=== PATIENT | male | born 1975 | race Two or more races ===

== ENCOUNTER 2021-05-22 12:00 | Emergency (ER) | payer MEDICAID, OTHER, SELFPAY ==
--- NOTE | ~2021-05-22 | XR_ITS ---
EXAMINATION: XR FOOT, RIGHT CLINICAL INFORMATION: Laceration great toe COMPARISON: None TECHNIQUE: AP, lateral, and oblique views of the right foot. FINDINGS: Bone alignment is normal. No fracture or dislocation is seen. Joint spaces are normal. Soft tissues are normal. XR/XR foot RT min 3V IMPRESSION: No fracture or foreign body seen.
[2021-05-22 13:28] VITALS: BP 138/90; PULSE 86; RESP 19; TEMP 36.6; O2SAT 98; BMI 35.6
[2021-05-22] MEDS: Diphth,Pertus(ACell),Tet Adult 0.5 ML SYRINGE IM (14:31)
[2021-05-22] MEDS: Ibuprofen 800 MG TABLET PO (14:31)
[2021-05-22] MEDS: Lidocaine HCl 2 % MPF 5 ML VIAL SUBCUT (14:31)
--- NOTE | 2021-05-22 14:40 | ED.WOUNDLAC ---
HPI - Wound/Laceration General Chief Complaint: Wound/Laceration Stated Complaint: wound/lac R foot Time Seen by Provider: 05/22/21 12:45 Source: patient and family Mode of arrival: ambulatory Limitations: language barrier (Cuban-speaking) History of Present Illness HPI narrative: 46-year-old male presenting to the ED with his they are both Cuban speaking after he was working at home trying to cut dry wall to fix some holes in his wall from door dog a [employer] who continues to make holes although when he was cutting the drywall he lacerated his right great toe with the saw machine that he was using and it cut through his boot. He reports he is not up-to-date on tetanus. He reports pain otherwise denies any paresthesias or any other symptoms complaints concerns or injuries at this time. 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) Extremity Location: right: foot (great toe ) Place: home Patient tetanus UTD: No Context: accidental Associated symptoms: pain Treatments prior to arrival: tourniquet Related Data Previous Rx's Medication Instructions Recorded ibuprofen 800 mg tablet 800 mg PO Q8H PRN #14 tab 05/22/21 levofloxacin 750 mg tablet 750 mg PO DAILY 10 Days #10 tab 05/22/21 Allergies Allergy/AdvReac Type Severity Reaction Status Date / Time No Known Allergies Allergy Verified 05/22/21 14:13 Review of Systems Review of Systems: Constitutional : No Fever, No Chills, Cardiovascular : No Chest Pain, No SOB Respiratory : No Dyspnea Gastrointestinal : No abdominal pain Musculoskeletal : No Joint Swelling Skin : positive skin laceration, No Foreign bodies, No rash, No surrounding erythema Neuro : No Weakness, No Numbness/tingling Psych : No SI/HI/thoughts of self injury Yes all other systems are reviewed and are negative [facility] Past Medical History Attestation statement: The following information was validated with the patient. Social History Social History Advance Directives: No Physical Exam Vital Signs: Vital Signs: Last Vital Signs Temp 98 F 05/22/21 13:28 Pulse 86 05/22/21 13:28 Resp 19 05/22/21 13:28 BP 138/90 H 05/22/21 13:28 Pulse Ox 98 05/22/21 13:28 BMI result Body Mass Index 35.6 vital signs have been reviewed as normal and appeared to be correct. Blood pressure normal Heart rate normal. Respiration rate normal. Temperature normal. Oxygen saturation normal. Appearance: Alert. Oriented X3. No acute distress. Head: Normal external exam. Normocephalic. Atraumatic. Eyes: PERRLA. EOMI. Conjunctiva and sclera normal. Eyelids normal. ENT: Pharynx normal. Uvula midline. Moist mucous membranes. Neck: Normal inspection. Neck supple. FROM. CVS: Normal heart rate and rhythm. Respiratory: No respiratory distress. Painless inspiration. Skin: Skin warm and dry. Normal skin color. Normal skin turgor. No rashes/lesions/lacerations noted. Extremities: Patient with the 2 cm intermediate laceration to the right great toe at the proximal abscess back no obvious ligamentous or tendon injury noted. He has full range of motion of all toes and foot and ankle joint. No foreign bodies noted. Otherwise all other Extremities exhibit normal range of motion and nontender. Neuro: Oriented X 3. No motor deficit. No sensory deficit. Reflexes normal. Normal steady gait. No focal neuro deficits noted. Vascular: + radial pulses/+ 2 distal pedal pulses/+2 dorsalis pedis b/l. Normal cap refill. No cyanosis noted to upper extremity nails and lower extremity toes nails. Course Course Course Narrative: Patient now status post laceration repair with 5 simple running stitch. Tetanus updated. Imaging obtained and negative for any acute processes. Will DC home with symptomatic treatment antibiotics along with instructions to return in 10-14 days for suture removal and to follow up prior if signs of infection. Patient understands agrees the plan. [facility] - Wound/Laceration Medical Records Attestation: I reviewed the patient's medical records. Imaging Data Right foot x-ray: Attestation: I personally reviewed and interpreted this imaging study as follows: Radiologist's impression: FINDINGS: Bone alignment is normal. No fracture or dislocation is seen. Joint spaces are normal. Soft tissues are normal.? XR/XR foot RT min 3V IMPRESSION: No fracture or foreign body seen. Procedures Laceration Laceration 1: Site: lower extremity (foot great toe at proximal aspect) Side (If applicable): right Size (cm): 2 Description: linear Depth: simple, single layer Local Anesthetic: lidocaine 2% Amount of anesthesia used (mL): 5 Pre-repair: wound explored, irrigated extensively and deep structures intact Skin layer closed with: nylon Size (cm): 4-0 Number of sutures: 5 Technique: simple, interrupted Discharge Plan Discharge Clinical Impression: Laceration Patient Disposition: Home, Self-Care Instructions: Laceration (DC) Prescriptions: New levofloxacin 750 mg tablet 750 mg PO DAILY 10 Days Qty: 10 0RF ibuprofen 800 mg tablet 800 mg PO Q8H PRN (Reason: pain) Qty: 14 0RF Referrals: [facility] [Primary Care Provider] - 2 days Philomena Mac PA [Emergency Midlevel Provider] - 10 days (for suture removal) Stand Alone Forms: Work/School Release Print Language: Cuban
== END 2021-05-22 16:01 | disposition home or self-care (01) ==
PROVIDERS: Emergency Provider Emergency Medicine
DX: S91.111A Laceration without foreign body of right great toe without damage to nail, initial encounter (principal); S90.811A Abrasion, right foot, initial encounter; M79.671 Pain in right foot; W26.0XXA Contact with knife, initial encounter; Y93.9 Activity, unspecified; Y92.009 Unspecified place in unspecified non-institutional (private) residence as the place of occurrence of the external cause; Y99.8 Other external cause status
CPT/HCPCS: 12001; 73630; 90471; 90715; 99284

== ENCOUNTER 2021-06-01 08:53 | Emergency (ER) | payer MEDICAID, OTHER, SELFPAY ==
[2021-06-01 09:10] VITALS: BP 139/84; PULSE 79; RESP 18; TEMP 36.7; O2SAT 96; BMI 35.0
--- NOTE | 2021-06-01 09:32 | ED_ITS ---
HPI - Recheck/Abnormal Lab/Rx General Chief Complaint: Skin/Abscess/Foreign Body Stated Complaint: stiches removal Time Seen by Provider: 06/01/21 09:26 Source: patient and family Mode of arrival: ambulatory Limitations: language barrier History of Present Illness complaint: suture/staple removal Initial visit (ago): day(s) (10) Initial visit for: laceration Returns today for: staple/stitch removal Symptoms since prior visit: no new symptoms Context: planned re-check Associated symptoms: none Treatments prior to arrival: other (Taking the ibuprofen and Levaquin as prescribed) Related Data Previous Rx's Medication Instructions Recorded ibuprofen 800 mg tablet 800 mg PO Q8H PRN #14 tab 05/22/21 levofloxacin 750 mg tablet 750 mg PO DAILY 10 Days #10 tab 05/22/21 Allergies Allergy/AdvReac Type Severity Reaction Status Date / Time No Known Allergies Allergy Verified 05/22/21 14:13 Review of Systems Review of Systems: Constitutional : No Fever, No Chills, Cardiovascular : No Chest Pain, No SOB Respiratory : No Dyspnea Gastrointestinal : No abdominal pain Musculoskeletal : No Joint Swelling Skin : positive healing skin laceration, No Foreign bodies, No rash, No surrounding erythema, no purulent drainage Neuro : No Weakness, No Numbness/tingling Psych : No SI/HI/thoughts of self injury Yes all other systems are reviewed and are negative [facility] Past Medical History Attestation statement: The following information was validated with the patient. Medical History No known health problems Social History Social History Advance Directives: No Advance Directives Information Provided: Yes Physical Exam Vital Signs: Vital Signs: Last Vital Signs Temp 98.0 F 06/01/21 09:10 Pulse 79 06/01/21 09:10 Resp 18 06/01/21 09:10 BP 139/84 06/01/21 09:10 Pulse Ox 96 06/01/21 09:10 BMI result Body Mass Index 35.0 vital signs have been reviewed as normal and appeared to be correct. Blood pressure normal Heart rate normal. Respiration rate normal. Temperature normal. Oxygen saturation normal. Appearance: Alert. Oriented X3. No acute distress. Head: Normal external exam. Normocephalic. Atraumatic. Eyes: PERRLA. EOMI. Conjunctiva and sclera normal. Eyelids normal. ENT: Pharynx normal. Uvula midline. Moist mucous membranes. Neck: Normal inspection. Neck supple. FROM. CVS: Normal heart rate and rhythm. Respiratory: No respiratory distress. Painless inspiration. Skin: Skin warm and dry. Normal skin color. Normal skin turgor. No rashes /lesions/lacerations noted. Extremities: To right great toe proximal aspect patient has well-healing wound with [address] No surrounding erythema/streaking/induration/fluctuance or signs of infection noted. Patient has full range of motion of the joint. No obvious ligamentous or tendon injury noted. No calf tenderness is noted. No lower extremity edema. Otherwise all other Extremities exhibit normal range of motion and nontender. Neuro: Oriented X 3. No motor deficit. No sensory deficit. Reflexes normal. Normal steady gait. No focal neuro deficits noted. Vascular: + radial pulses/+ 2 distal pedal pulses/+2 dorsalis pedis b/l. Normal cap refill. No cyanosis noted to upper extremity nails and lower extremity toes nails. Course Course Course Narrative: Patient now status post suture removal. Five sutures removed. Patient tolerated procedure well. No signs of infection. Instructed patient to continue taking his antibiotics as previously prescribed and to return if any new or worsening symptoms. Patient understands agrees with this plan. [facility] - Recheck/Abnormal Lab/Rx Medical Records Attestation: I reviewed the patient's medical records. Discharge Plan Discharge Clinical Impression: Visit for suture removal Patient Disposition: Home, Self-Care Instructions: Stitches Removal (ED) Prescriptions: No Action levofloxacin 750 mg tablet 750 mg PO DAILY 10 Days Qty: 10 0RF ibuprofen 800 mg tablet 800 mg PO Q8H PRN (Reason: pain) Qty: 14 0RF Referrals: Physician,Unknown J [Primary Care Provider] - (your pcp) Print Language: Kyrgyz
== END 2021-06-01 09:44 | disposition home or self-care (01) ==
PROVIDERS: Emergency Provider Emergency Medicine
DX: Z48.02 Encounter for removal of sutures (principal); Z79.899 Other long term (current) drug therapy
CPT/HCPCS: 99283

== ENCOUNTER 2022-10-29 15:00 | Outpatient (REF) | payer MEDICAID, OTHER, SELFPAY ==
[2022-10-29 16:30] LABS: Estimated Average Glucose 151 mg/dL; Hemoglobin A1c % 6.9 % (<6.0)
== END 2022-10-29 15:01 | disposition home or self-care (01) ==
LOC: HO.HHCL 15:00
PROVIDERS: Visit Provider Registered Nurse
DX: E11.65 Type 2 diabetes mellitus with hyperglycemia (principal)
CPT/HCPCS: 36415; 83036

== ENCOUNTER 2024-06-08 15:21 | Outpatient (REF) | payer MEDICAID, OTHER, SELFPAY ==
[2024-06-08 16:30] LABS: Hematocrit 40.2 % (42.0-52.0); Hemoglobin 13.4 g/dl (14.0-18.0); Mean Corpuscular HGB Conc 33.3 g/dl (31.0-36.0); Mean Corpuscular Hemoglobin 28.9 pg (27.0-33.0); Mean Corpuscular Volume 86.8 fL (80.0-98.0); Mean Platelet Volume 9.9 fL (9.4-12.4); Platelet Count 323 X10*3/uL (160-400); Red Blood Count 4.63 X10*6/uL (4.60-5.80); Red Cell Distribution Width 13.4 % (11.0-16.0); White Blood Count 7.7 X10*3/uL (4.8-10.8)
[2024-06-08 16:33] LABS: Estimated Average Glucose 203 mg/dL; Hemoglobin A1C 253.9878 umol/L; Hemoglobin A1c % 8.7 % (<6.0); Total Hemoglobin (HGBA1C) 3556.4472 umol/L
[2024-06-08 17:10] LABS: Creatinine Urine 184.29 mg/dL; Microalbum/Creatinine Ratio Ur 13.5 ug/mg cr (<30)
[2024-06-08 17:43] LABS: Folate > 20.0 ng/mL (> or = 4.0); Vitamin B12 548 pg/mL (200-900)
[2024-06-08 18:05] LABS: Alanine Aminotransferase 26 U/L (0-40); Albumin Level 3.8 g/dL (3.5-5.0); Alkaline Phosphatase 66 U/L (39-117); Anion Gap 13 (12-20); Aspartate Amino Transferase 22 U/L (5-37); Bilirubin Total 0.3 mg/dL (0.0-1.0); Blood Urea Nitrogen 13 mg/dL (9-16); Calcium 8.7 mg/dL (8.4-10.2); Carbon Dioxide 28 mmol/L (22-29); Chloride 104 mmol/L (96-108); Cholesterol 246 mg/dL (<200); Estimated Glomerular Filt Rate > 60; Glucose Random 263 mg/dL (60-115); HDL Cholesterol 35 mg/dL (>40); Sodium 141 mmol/L (135-145); TSH reflex Free T4 1.19 uIU/mL (0.32-4.0); Total Protein 6.7 g/dL (6.5-8.0); Triglycerides 429 mg/dL (<150)
--- OUTSIDE RECORDS SUMMARY | 2024-06-08 18:31 | XMS_ITS | Clinical Summary ---
Author Organization [employer] Address [address] [place] [address] Care Team Providers Care Veneer Marker Name Role Phone Debbi Tinsley MD Primary Care Pro vider Allergies No known active allergies Medications glucose blood (FREESTYLE LITE) test strip 1 each by Other route 3 times daily. TEST BLOOD SUGAR TWICE A DAY 100 each 023 Active TRUEplus Lancets 33G misc USE 1 TO TEST BLOOD SUGAR TWICE DAILY 100 each 023 Active atorvastatin (Lipitor) 40 MG tabletIndication s:Mixed hyperlipidemia Take 1 tablet (40 mg) by mouth at bedtime. 90 tablet 025 Active lisinopril 2.5 MG tabletIndication s:Type 2 diabetes mellitus with hyperglycemia, without long-term current use of insulin (CMS/HCC) Take 1 tablet (2.5 mg) by mouth Once per day. 90 tablet 025 Active metFORMIN (Glucophage) 1000 MG tabletIndication s:Type 2 diabetes mellitus with hyperglycemia, without long-term current use of insulin (CMS/HCC) Take 1 tablet (1,000 mg) by mouth with breakfast AND 0.5 tablets (500 mg) with evening meal. 180 tablet 2 025 Active omeprazole OTC (PriLOSEC OTC) 20 MG EC tablet Take 1 tablet (20 mg) by mouth before breakfast. Do not crush, chew, or split. 90 tablet 025 Active Heartburn Relief 10 MG tablet Take 1 tablet (10 mg) by mouth if needed in the morning and at bedtime for heartburn. 30 tablet 1 025 Active Trulicity 0.75 MG/0.5ML solution auto-injector Inject 0.75 mg as directed 1 (one) time per week. 2 mL 2 025 Active Heartburn Relief 10 MG tablet Take 10 mg by mouth if needed in the morning and at bedtime. 022 2024 Discontinued(R eorder (will not trigger notification to Pharmacy)) ibuprofen 600 MG tablet Take 1 tablet by mouth in the morning and 1 tablet at noon and 1 tablet in the evening. 022 2024 Discontinued(O ther) metFORMIN (Glucophage) 1000 MG tabletIndication s:Type 2 diabetes mellitus with hyperglycemia, without long-term current use of insulin ([facility]) Take 1 tablet (1,000 mg) by mouth with breakfast AND 0.5 tablets (500 mg) with evening meal. 180 tablet 2 023 2024 Discontinued(R eorder (will not trigger notification to Pharmacy)) glucose 4 g chewable tabletIndication s:Type 2 diabetes mellitus with hyperglycemia, without long-term current use of insulin ([facility]) Chew 4 tablets (16 g) if needed for low blood sugar. 50 tablet 12 023 2024 Discontinued(O ther) lisinopril 2.5 MG tabletIndication s:Type 2 diabetes mellitus with hyperglycemia, without long-term current use of insulin ([facility]) TAKE 1 TABLET BY MOUTH DAILY IN THE MORNING 90 tablet 024 2024 Discontinued(R eorder (will not trigger notification to Pharmacy)) atorvastatin (Lipitor) 40 MG tabletIndication s:Mixed hyperlipidemia TAKE 1 TABLET BY MOUTH DAILY AT BEDTIME 90 tablet 024 2024 Discontinued(R eorder (will not trigger notification to Pharmacy)) Trulicity 0.75 MG/0.5ML solution auto-injector INJECT ONE PEN (=0.75MG) SUBCUTANEOUSLY ONCE A WEEK DIRECTED 2 mL 3 024 2024 Discontinued(R eorder (will not trigger notification to Pharmacy)) omeprazole OTC (PriLOSEC OTC) 20 MG EC tablet Take 20 mg by mouth before breakfast. Do not crush, chew, or split. 2024 Discontinued(R eorder (will not trigger notification to Pharmacy)) Active Problems Problem Noted Date Diagnosed Date GERD (gastroesophageal reflux disease) Health care maintenance 08/28/2022 Overview (11/26/2022): Immunizations: Pending Hep B Dose #3 HIV: Nonreactive 05/15/21 Hep C: Nonreactive 05/15/21 Hep B: nonreactive 05/15/21. Received Dose #1 09/06/21. Dose #2 08/28/22. Dose 3 today 10/29/22 Colonoscopy: Reports he had Colon Cancer screening before; unknown when Denies family hx of colon cancer. Pt request cologuard PSA: Not due yet. Per ACS shared decision-making of uncertainties, risks, and potential benefits . Screening start age 50 average risk. Age 45 if high risk. Discuss in future Lung cancer: Former smoker; Not due for screening yet. Quit 2011 AAA: Not due yet. The USPSTF recommends 1-time screening for abdominal aortic aneurysm (AAA) with ultrasonography in men aged 65 to 75 years who have ever smoked. Eye: June 2022, wears eyeglasses Dental: discuss at next visit Type 2 diabetes mellitus 04/03/2022 Overview (11/26/2022): Current regimen: - Trulicity 0.75mg/0.5ml - Metformin 1000 mg 1 tablet AM, 500 mg 1 tablet in PM. Educated pt on use; common GI side effects. Educated take with food. - Discontinue Jardiance 10 mg d/t SE of weakness in knees A1c: 6.9 on 10/29/22; 8.2 on 06/26/22; 8.5 04/26/22; unable to obtain A1c d/t poor capillary blood return. Glucose: 148 on 10/29/22; 99 on 08/28/22; 156 on 06/26/22 Microalbumin: WNL 04/26/22 Lipid Panel: Elevated 04/26/22; increased dose Atorvastatin from 10mg to 40mg on 05/07/22 Foot Exam: 810 on L foot, 9 R foot. PCV 20: 09/06/21 Tdap: 05/22/21 Cornelius: taking Lisinopril 2.5mg for kidney protection Statin: Atorvastatin 40mg Last dental: 2021 Last Eye visit: 02/2022. Wears eyeglasses. Assessment & Plan (11/26/2022 5:25 PM EDT): Reports episodes of hypoglycemia, improved Continue Glucose tablets, chew 4 tabs when BG < 70. Educated pt to take 4 tabs, not 1 when his sugars drop low Continue Trulicity and Metformin dose as prescribed Pt will go to lab today for A1c Followup 3 months with new PCP or sooner PRN Assessment & Plan (08/28/2022 5:55 PM EDT): Reports episodes of hypoglycemia. Tx w/ candies. Last episode 3 days ago. Rx Glucose tablets, chew 4 tabs when BG < 70 Self-discontinued jardiance 10 mg D/t SE Taking lower dose of metformin due to episodes of hypoglycemia. Will check A1c again Followup 1-2 months with new PCP Former smoker 04/03/2022 Overview (04/03/2022): Quit 10 years ago Cocaine dependence in remission 04/03/2022 Overview (04/03/2022): Quit 10 years ago Used nasally Hyperlipidemia 05/16/2021 Overview (08/28/2022): Continue statin Follow low fat diet Educated Pt on importance of following diabetic diet Assessment & Plan (08/28/2022 5:54 PM EDT): Followup 1-2 months with new PCP Encounters Date Type Department Care Team Description 05/27/2024 1:45 PM EDT Office Visit [facility] [address] [place] [phone] Debbi Tinsley MD Obesity without serious comorbidity, unspecified class, unspecified obesity type (Primary Dx); Dietary counseling; Exercise counseling; Cocaine dependence in remission (CMS/[facility]); Type 2 diabetes mellitus with hyperglycemia, without long-term current use of insulin ([facility]); Colon cancer screening; Gastroesophageal reflux disease, unspecified whether esophagitis present; Annual physical exam; Mixed hyperlipidemia 05/27/2024 Travel 05/18/2024 Patient Outreach [facility] [address] [place] [address] Debbi Tinsley MD Care Coordination (CHW outreach for SDOH food needs-referral completed /) 05/18/2024 Patient Outreach [facility] [address] [place] [address] Debbi Tinsley MD Pre-visit Planning (SDOH Screening positive and Tobacco screening negative) 05/17/2024 Telephone [facility] [address] [place] [address] Debbi Tinsley MD Chart Prep 03/18/2024 Telephone [facility] [address] [place] [address] Mila Almazan MA May recall from Last 3 Months Immunizations Name Administration Dates Next Due Hep B, adult 10/29/2022,08/28/2022,09/06/2021 Pneumococcal Conjugate PCV 20 09/06/2021 Tdap 05/22/2021 Social History Tobacco Use Types Packs/Day Years Used Date Smoking Tobacco: Former Cigarettes 0.5 15 2 000 - 2014 Smokeless Tobacco: Never Comments:Started smoking 15 y of age stopped at his 37 y of age -used to smoke for 15 years ( given stopped for 5 y) ----stopped 12 y ago ---- 15 cig a day .PQT calc 11.2- no need for lung ca screening test Alcohol Use Standard Drinks/Week Comments Not Currently 0 (1 standard drink = 0.6 oz pur e alcohol) Depression Answer Date Recorded Patient Health Questionnaire-9 Score 0 05/27/2024 Patient Health Questionnaire-9 Score 0 05/27/2024 Last PHQ-9: Questionnaire Data Not on file 0 05/27/2024 Housing Stability Answer Date Recorded What is your housing situation today? I have ria loya 05/18/[address] you li ve. Do you have problems with any of the following? None of the above 05/18/2024 Food Insecurity Answer Date Recorded Within the past 12 months, y ou worried that your food would run out before you got money to buy more: Sometimes True 2024 Within the past 12 months,th e food you bought just didn't last and you didn't have enough money to get more: Sometimes True 05/18/2024 Transportation Answer Date Recorded In the past 12 months, has l ack of transportation kept you from medical appts, meetings, work or from getting things needed for daily living? No 05/18/2024 Utilities Answer Date Recorded In the past 12 months, has t he electric, gas, oil or water company threatened to shut off services in your home? No 05/18/2024 Depression Answer Date Recorded Patient Health Questionnaire-2 Score 0 05/27/2024 Internet Access Answer Date Recorded Internet Access Q1 Yes 05/18/2024 Internet Access Q2 Not on file 05/18/2024 Sex and Gender Information Value Date Recorded Sex Assigned at Male 12/24/2021 10:40 AM EDT Legal Sex Male 10:40 AM EDT Gender Identity Male 12/24/2021 10:40 AM EDT Sexual Orientation Choose not to disclose 2021 10:40 AM EDT Last Filed Vital Signs Vital Sign Reading Time Taken Comments Blood Pressure 118/73 05/27/2024 1:48 PM EDT Pulse 97 05/27/2024 1:48 PM EDT Temperature 36.6 ??C (97.9 ??F) 05/27/2024 1:48 PM ED T Respiratory Rate 20 05/27/2024 1:48 PM EDT Oxygen Saturation 92% 05/27/2024 1:48 PM EDT Inhaled Oxygen Concentration - - Weight 99.2 kg (218 lb 12.8 oz) 05/27/2024 1:48 PM EDT Height 167.6 cm (5' 6 ) 05/27/2024 1:48 PM EDT Body Mass Index 35.32 05/27/2024 1:48 PM EDT Plan of Treatment Upcoming Encounters Date Type Department Care Team (Late st Contact Info) Description 07/22/2024 1:30 PM EDT Office Visit [facility] [address] [place] [phone] Debbi Tinsley MD [address] [place] [address] Health Maintenance Due Date Last Done Comments CT Colonography 1975 Colonoscopy 1975 FIT 1975 FOBT 1975 Sigmoidoscopy 1975 Eye Exam 1985 Family Planning (PISQ) 1990 Diabetes: Urine Protein Screening 04/27/2023 06/08/2024, 04/26/2022, 10/03/2021 Lipid Panel 04/27/2023 06/08/2024, 03/0 04/2022, 05/15/2021 Diabetes: Foot Exam 06/27/2023 06/26/2022, COVID-19 Vaccine ( season) 2023 Influenza Vaccine (#1) 2023 Diabetes: Hemoglobin A1C 09/07/2024 025, 10/29/2022, 06/26/2022, Additional history exists Zoster Vaccines (1 of 2) 2025 SDOH Screening 05/18/2025 05/18/2024 Alcohol/Substance Use Screening 05/27/2025 05/27/2024 Depression Screening 05/27/2025 05/27/2024, 05/28/19 Tobacco Screening 05/27/2025 05/27/2024 Colorectal Cancer Screening 12/18/2025 FIT DNA/Cologuard 12/18/2025 12/18/2022 DTaP/Tdap/Td Vaccines (2 - Td or Tdap) 05/23/2031 05/22/2021 RSV Patients and Patients Aged 60 years or older (1 - 1-dose 75+ series) 2050 HIV Screening Completed 05/15/2021 Hepatitis C Screening Completed 05/15/2021 Pneumococcal Vaccine: Pediatrics (0 to 5 Years) and At-Risk Patients (6 to 49) Years) Completed 09/06/2021 Hepatitis B Vaccines Completed 10/29/2022, 08/28/2022, 09/06/2021 HIB Vaccines Aged Out No longer eligi ble based on patient's age to complete this topic HPV Vaccines Aged Out No longer eligi ble based on patient's age to complete this topic Hepatitis A Vaccines Aged Out No long er eligible based on patient's age to complete this topic IPV Vaccines Aged Out No longer eligi ble based on patient's age to complete this topic Meningococcal Vaccine Aged Out No kurt pavan eligible based on patient's age to complete this topic RSV under 20 months Aged Out No longe r eligible based on patient's age to complete this topic Rotavirus Vaccines Aged Out No longer eligible based on patient's age to complete this topic Procedures Procedure Name Priority Date/Time Associated Diagnosis Comments VITAMIN B12/FOLATE, SERUM PANEL Routine 06/08/2024 3:23 PM EDT Annual physical exam TSH W/REFLEX TO FT4 Routine 06/08/2024 3 :23 PM EDT Annual physical exam LIPID PANEL, STANDARD Routine 06/08/2024 3:23 PM EDT Annual physical exam HEMOGLOBIN A1C Routine 06/08/2024 3:23 PM EDT Annual physical exam COMPREHENSIVE METABOLIC PANEL Routine 06/08/2024 3:23 PM EDT Annual physical exam CBC Routine 06/08/2024 3:23 PM EDT Annual physical exam ALBUMIN, RANDOM URINE W/CREATININE Routine 06/08/2024 3:23 PM EDT Annual physical exam LAB COLOGUARD?? COLON CANCER SCREEN Routine 12/18/2022 8:20 AM EDT Encounter for screening for malignant neoplasm of colon ZZZ HISTORICAL HEPATITIS C AB W/REFL TO HCV RNA, QN, PCR Routine 05/15/2021 3:54 PM EDT HIV 1/2 ANTIGEN/ANTIBODY, FOURTH GENERATION W/RFL Routine 05/15/2021 3:54 PM EDT from Last 3 Months or Most Recently Relevant to Health Maintenance Results * Vitamin B12 (Cobalamin) and Folate Panel, Serum (06/08/2024 3:23 PM EDT) Vitamin B12 548 200 - 900 pg/mL [facility] Comment:NORMAL 200-900 PG/M L INDETERMINATE 160-199 PG/ML DEFICIENT < 160 PG/ML Folate >20.0 > or = 4.0 ng/mL [facility] Comment:Reference Values:> o r = 4.0 ng/mL< 4.0 ng/mL suggests folate deficiency Methotrexate, aminopterin and folinic acid(leucovorin) are chemotherapeutic agents whose molecularstructures are similar to folate; therefore, the Architectfolate assay cannot be used for patients using these drugs. Blood 06/08/2024 3:23 PM EDT 06/08/2024 4:04 PM EDT us Debbi Campbell MD LAB BLOOD ORDERAB LES Final Result Performing Organization Address [facility]/ZIP Co de Phone Number [facility] [address] [place] [address] [phone] * TSH with Reflex to Free T4 (06/08/2024 3:23 PM EDT) TSH reflex Free T4 1.19 0.32 - 4.0 uIU/mL [facility] Blood 06/08/2024 3:23 PM EDT 06/08/2024 4:04 PM EDT us Debbi Campbell MD LAB BLOOD ORDERAB LES Final Result Performing Organization Address City/[facility]/ZIP Co de Phone Number [facility] [address] [place] [phone] * Albumin, Random Urine W/Creatinine (06/08/2024 3:23 PM EDT) Creatinine, Urine 184.29 mg/dL [facility] Microalbumin Urine 25.0 mg/L [facility] Microalbum Creatinine Ratio Ur 13.5 <30 ug/mg cr [facility] Comment:Albumin/Creatinine R atio Reference Ranges: Normal: < 30 ug/mg creatinine Microalbuminuria: 30 - 300 ug/mg creatinineClinical Albuminuria: > 300 ug/mg creatinine Urine (Urine, Random) 06/08/2024 3:23 PM EDT 06/08/2024 4:02 PM EDT us Debbi Campbell MD LAB URINE ORDERAB LES Final Result Performing Organization Address City/[facility]/ZIP Co de Phone Number [facility] [address] [place] [phone] * (ABNORMAL) CBC (06/08/2024 3:23 PM EDT) White Blood Count 7.7 4.8 - 10.8 X10*3/uL [facility] Red Blood Count 4.63 4.60 - 5.80 X10*6/uL [facility] Hemoglobin 13.4(L) 14.0 - 18.0 g/dl [facility] Hematocrit 40.2(L) 42.0 - 52.0 % [facility] Mean Corpuscular Volume 86.8 80.0 - 98.0 fL [facility] Mean Corpuscular Hemoglobin 28.9 27.0 - 33.0 pg [facility] Mean Corpuscular HGB Conc 33.3 31.0 - 36.0 g/dl [facility] Red Cell Distribution Width 13.4 11.0 - 16.0 % [facility] Platelet Count 323 160 - 400 X10*3/uL [facility] Mean Platelet Volume 9.9 9.4 - 12.4 fL [facility] NRBC Pct Auto 0.0 0.0 - 0.2 /100WBC [facility] NRBC Abs Auto 0.000 0.0 - 0.012 X10*3/uL [facility] Blood Venous blood specimen / Unknown 06/08/2024 3:23 PM EDT 06/08/2024 4:04 PM EDT us Debbi Campbell MD LAB BLOOD ORDERAB LES Final Result [facility] [address] [place] [phone] * (ABNORMAL) Hemoglobin A1c (06/08/2024 3:23 PM EDT) Hemoglobin A1c 8.7(H) <6.0 % [facility] Comment:Hemoglobin A1C Refer ence Range Adults: 4.8 - 6.0 % Non diabetic: < 6.0 % Goal: < 7.0 %Additional Action Suggested: > 8.0 %Note: Hemoglobin A1c results are invalid for patients with abnormal amounts of HbF. Blood transfusions may impact the HbA1c concentration in the patient sample. Estimated Average Glucose 203 mg/dL [facility] Comment:eAG = Estimated ave rage glucose which is %A1C expressed asaverage glucose, using the formula of the [id number]-[id number] Glucose study (ADAG), Diabetes Care, Vol.31,#8,Sep. 2007 Blood Venous blood specimen / Unknown 06/08/2024 3:23 PM EDT 06/08/2024 4:04 PM EDT us Debbi Campbell MD LAB BLOOD ORDERAB LES Final Result Performing Organization Address City/[facility]/ZIP Co de Phone Number [facility] [address] [place] [phone] * (ABNORMAL) Lipid Panel, Standard (06/08/2024 3:23 PM EDT) Triglycerides 429(H) <150 mg/dL [facility] Comment:Desirable Triglyceri de: less than 150 mg/dLBorderline High Triglyceride 150-199 mg/dLHigh Triglyceride: 200-499 mg/dLVery High Triglyceride: greater than or equal to 5OO mg/dL Cholesterol 246(H) <200 mg/dL [facility] Comment:Desirable Cholestero l: less than 200 mg/dLBorderline High Cholesterol: 200-239 mg/dLHigh Cholesterol: greater than 239 mg/dL LDL Cholesterol Calculated TNP <100 mg/dL [facility] Comment:Unable to calculate the LDL. The formula of Friedwald,Lakhani, and Myron is only valid if the triglycerides areless than 400 mg/dl. HDL Cholesterol 35(L) >40 mg/dL [facility] Comment:Desirable HDL: great er than 40 mg/dL Note: This HDL assay may give artificially low results in patients with liver disease. Blood Venous blood specimen / Unknown 06/08/2024 3:23 PM EDT 06/08/2024 4:04 PM EDT us Debbi Campbell MD LAB BLOOD ORDERAB LES Final Result [facility] [address] [place], [place] [phone] * (ABNORMAL) Comprehensive Metabolic Panel (06/08/2024 3:23 PM EDT) Sodium 141 135 - 145 mmol/L [facility] Potassium 4.0 3.3 - 5.1 mmol/L [facility] Chloride 104 96 - 108 mmol/L [facility] Carbon Dioxide 28 22 - 29 mmol/L [facility] Anion Gap 13 12 - 20 [facility] Urea Nitrogen (BUN) 13 9 - 16 mg/dL [facility] Creatinine, Serum 1.01 0.5 - 1.4 mg/dL [facility] Estimated Glomerular Filt Rate >60 [facility] Comment:Chronic Kidney Disea se: Estimated GFR < 60 mL/min/1.85s2Ilgemz Kidney Disease: Estimated GFR < 15 mL/min/1.73m2 Glucose 263(H) 60 - 115 mg/dL [facility] Calcium 8.7 8.4 - 10.2 mg/dL [facility] Bilirubin, Total 0.3 0.0 - 1.0 mg/dL [facility] Aspartate Amino Transferase 22 5 - 37 U/L [facility] Alanine Aminotransferase 26 0 - 40 U/L [facility] Total Protein 6.7 6.5 - 8.0 g/dL [facility] Albumin Level 3.8 3.5 - 5.0 g/dL [facility] Alkaline Phosphatase 66 39 - 117 U/L [facility] Blood Venous blood specimen / Unknown 06/08/2024 3:23 PM EDT 06/08/2024 4:04 PM EDT Debbi Campbell MD LAB BLOOD ORDERAB LES Final Result [facility] [address] [place] [phone] * Cologuard?? colon cancer screening (12/18/2022 8:20 AM EDT) Cologuard Result Negative Negative 12/27/19 4:32 AM EDT [facility] (CLIA #:[id number]) Comment: NEGATIVE TEST RESULT. A negative Cologuard result indicates a low likelihood that a colorectal cancer (CRC) or advanced adenoma (adenomatous polyps with more advanced pre-malignant features) ??is present. The chance that a person with a negative Cologuard test has a colorectal cancer is less than 1 in 1500 (negative predictive value >99.9%) or has an ??advanced adenoma is less than ??5.3% (negative predictive value 94.7%). These data are based on a prospective cross-sectional study of 10,000 individuals at average risk for colorectal cancer who were screened with both Cologuard and colonoscopy. (Mahogany Gan. et al, N Engl J Med 2014;370(14):1286- 1297) The normal value (reference range) for this assay is negative. COLOGUARD RE-SCREENING RECOMMENDATION: Periodic colorectal cancer screening is an important part of preventive healthcare for asymptomatic individuals at average risk for colorectal cancer. ??Following a negative Cologuard result, the [place] [employer] and U.S. Multi-Society Task Force screening guidelines recommend a Cologuard re-screening interval of 3 years. References: [place] [employer] Guideline for Colorectal Cancer Screening: https://www.cancer.org/cancer/eimts-zhipum-grnqdc/vmaeqsquf-leegogdop-pdplfqo/ac s-rec ommendations.html.; Kishor LARSEN, Basilia FOSS, Jacqui GuyK, Colorectal Cancer Screening: Recommendations for Physicians and Patients from the U.S. Multi-Society Task Force on Colorectal Cancer Screening , Am J Gastroenterology 2017; 112:3058-8527. TEST DESCRIPTION: Composite algorithmic analysis of stool DNA-biomarkers with hemoglobin immunoassay. ?? Quantitative values of individual biomarkers are not reportable and are not associated with individual biomarker result reference ranges. Cologuard is intended for colorectal cancer screening of adults of either sex, 45 years or older, who are at average-risk for colorectal cancer (CRC). Cologuard has been approved for use by the U.S. FDA. The performance of Cologuard was established in a cross sectional study of average-risk adults aged 50-84. Cologuard performance in patients ages 45 to 49 years was estimated by sub-group analysis of near-age groups. Colonoscopies performed for a positive result may find as the most clinically significant lesion: colorectal cancer [4.0%], advanced adenoma (including sessile serrated polyps greater than or equal to 1cm diameter) [20%] or non- advanced adenoma [31%]; or no colorectal neoplasia [45%]. These estimates are derived from a prospective cross-sectional screening study of 10,000 individuals at average risk for colorectal cancer who were screened with both Cologuard and colonoscopy. (Mahogany Tobias al, N Engl J Med 2014;370(14):7072-1794.) Cologuard may produce a false negative or false positive result (no colorectal cancer or precancerous polyp present at colonoscopy follow up). A negative Cologuard test result does not guarantee the absence of CRC or advanced adenoma (pre-cancer). The current Cologuard screening interval is every 3 years. ([place] [employer] and U.S. Multi-Society Task Force). Cologuard performance data in a 10,000 patient pivotal study using colonoscopy as the reference method can be accessed at the following location: [email or web address]/results. Additional description of the Cologuard test process, warnings and precautions can be found at [email or web address]. Stool specimen (specimen) 12/18/2022 8:20 AM EDT 12/19/2022 6:29 PM EDT Meghan Jeffery PEDIATRIC GENETIC COUNSELOR LAB MOLECULAR DIAGNOSTICS ORDERABLES Final Result [facility] (CLIA #:[id number]) [address] [place] [address], * HEPATITIS C AB W/REFL TO HCV RNA, QN, PCR (05/15/2021 3:54 PM EDT) HEPATITIS C ANTIBODY NON-REACT VARGAS NON-REACT AVRGAS [facility] INDEX 0.02 <1.00 [facility] Comment: ?? HCV antibody was non-reactive. There is no laboratory ?? evidence of HCV infection. ?? In most cases, no further action is required. However, if recent HCV exposure is suspected, a test for HCV RNA (test code 22790) is suggested. ?? For additional information please refer to http://education.Fidus Writer/faq/TIQ51b2 (This link is being provided for informational/ educational purposes only.) ?? 05/15/2021 3:54 PM EDT Trista Vasquez PEDIATRIC GENETIC COUNSELOR HISTORICAL/NON ORDERABLE LABS Final Result Performing Organization Address [facility] Co de Phone Number [facility] [address] * HIV 1/2 ANTIGEN/ANTIBODY,FOURTH GENERATION W/RFL (05/15/2021 3:54 PM EDT) Pathologist [facility] HIV-1/2 ANTIGEN AND ANTIBODIES, 4TH GENERATION W/ REFLEX NON-REACT VARGAS NON-REACT VARGAS [facility] Comment: HIV-1 antigen and HIV-1/HIV-2 antibodies were not detected. There is no laboratory evidence of HIV infection. ?? PLEASE NOTE: This information has been disclosed to you from records whose confidentiality may be protected by state law. ??If your state requires such protection, then the state law prohibits you from making any further disclosure of the information without the specific written consent of the person to whom it pertains, or as otherwise permitted by law. A general authorization for the release of medical or other information is NOT sufficient for this purpose. ? For additional information please refer to http://education.[employer].Emgo/faq/CIN421 (This link is being provided for informational/ educational purposes only.) ? The performance of this assay has not been clinically validated in patients less than 2 years old. ?? 05/15/2021 3:54 PM EDT us Trista Vasquez PEDIATRIC GENETIC COUNSELOR LAB BLOOD ORDERABLES Final Res ult [facility] [address] from Last 3 Months or Most Recently Relevant to Health Maintenance [place] [address] [place] [address] LIMITED [facility] FULL Care Teams Veneer Marker Relationship Specialty Start Date End Date Debbi Tinsley MD [address] [place] [phone] PCP - General Internal Medicine 08/28/22
--- OUTSIDE RECORDS SUMMARY | 2024-06-08 18:31 | XMS_ITS | Referral Summary ---
Author Organization [facility] Address [address] [place] [address] Care Team Providers Care Clin Tech Name Role Phone Annie Vasquez Primary Care Provider [phone] Allergies No known active allergies Medications No known medications Active Problems No known active problems Social History Tobacco Use Types Packs/Day Years Used Date Smoking Tobacco: Never Assessed Sex and Gender Information Value Date Recorded Sex Assigned at Not on file Legal Sex Male 3:00 PM EDT Gender Identity Not on file Sexual Orientation Not on file Plan of Treatment Not on file Insurance HSNO/FREE CARE Care Teams Clin Tech Relationship Specialty Start Date End Date Annie Vasquez [address] [place] [phone] PCP - General 05/16/21
--- OUTSIDE RECORDS SUMMARY | 2024-06-08 18:32 | XMS_ITS | Clinical Summary ---
Author Organization [facility] Address [address] [place] [address] Care Team Providers Care Barrel Drainer Name Role Phone Annie Vasquez Primary Care Provider [phone] Allergies No known active allergies Medications No known medications Active Problems No known active problems Social History Tobacco Use Types Packs/Day Years Used Date Smoking Tobacco: Never Assessed Sex and Gender Information Value Date Recorded Sex Assigned at Not on file Legal Sex Male 3:00 PM EDT Gender Identity Not on file Sexual Orientation Not on file Plan of Treatment Health Maintenance Due Date Last Done Comments Cologuard 1975 Colon Cancer Screening 1975 Colonoscopy 1975 FOBT / Fit Test 1975 HIV Screening 1975 Hepatitis C Screening 1975 Sigmoidoscopy 1975 Hepatitis B Vaccines (1 of 3 - 19+ 3-dose series) 1994 COVID-19 Vaccine (2023-2 5 season) 2023 Alcohol/Substance Use Screening 02/25/2024 Depression Screening and Follow-Up 02/25/2024 Social Drivers of Health Eva ual Screening 02/25/2024 Influenza Vaccine (Season Ended) 2024 DTaP,Tdap,and Td Vaccines (2 - Td or Tdap) 05/23/2031 05/22/2021 RSV Vaccine (60+ years old a nd patients) (1 - 1-dose 75+ series) 2050 Pneumococcal Vaccine: Pediat chrystal (0-5 Years) and At-Risk Patients (6-50 Years) Aged Out No longer eligible b ased on patient's age to complete this topic Insurance [place] HS[place]/FREE CARE Care Teams Barrel Drainer Relationship Specialty Start Date End Date Annie Vasquez [address] [place] [phone] PCP - General 05/16/21
[2024-06-09 03:23] LABS: CT PCR NOT DETECTED (Not Detect.); NG PCR NOT DETECTED (Not Detect.)
[2024-06-09 08:12] LABS: HBS Num1 5.27 mIU/mL (0-7.99); HBc Num1 0.06 S/CO (0.00-0.79); HBsAGNum1 0.31 S/CO (0.00-0.99); HIV AB/AG Nonreactive (Nonreactive); HIV Num 1 0.05 S/CO (0.00-0.99); Hepatitis B Core Antibody Nonreactive (Nonreactive); Hepatitis B Surface Antigen Negative (Negative); ~HepC Num1 0.11 S/CO (0.00-0.79); ~Hepatitis B Surface Antibody NONREACTIVE (Nonreactive); ~Hepatitis C Antibody Nonreactive (Nonreactive)
[2024-06-09 08:31] LABS: Syphilis Screen Nonreactive (Nonreactive)
[2024-06-09 16:56] LABS: Iron 106 mcg/dL (45-160); Percent Iron Saturation 35 % (15-50); Total Iron Binding Capacity 303 mcg/dL (228-428); Unsaturated Iron Binding 197 ug/dL
[2024-06-09 17:09] LABS: Ferritin 84 ng/mL (20-250)
== END 2024-06-08 15:22 | disposition home or self-care (01) ==
LOC: HO.HHCL 15:21
PROVIDERS: Visit Provider Student in an Organized Health Care Education/Training Program
DX: Z00.00 Encounter for general adult medical examination without abnormal findings (principal)
CPT/HCPCS: 80053; 80061; 82043; 82570; 82607; 82728; 82746; 83036; 83540; 84443; 85027; 86704; 86706; 86780; 86803; 87340; 87389; 87491; 87591

== ENCOUNTER 2024-10-20 15:05 | Outpatient (REF) | payer MEDICAID, OTHER, SELFPAY ==
--- OUTSIDE RECORDS SUMMARY | 2024-10-20 16:23 | XMS_ITS | Clinical Summary ---
Author Organization [facility] Address [address] [place] [address] Care Team Providers Care Highway Maintenance Technician Name Role Phone Debbi Tinsley Primary Care Provider [phone] Allergies No known active allergies Medications No known medications Active Problems No known active problems Social History Tobacco Use Types Packs/Day Years Used Date Smoking Tobacco: Never Assessed Sex and Gender Information Value Date Recorded Sex Assigned at Not on file Legal Sex Male 3:00 PM EDT Gender Identity Not on file Sexual Orientation Not on file Plan of Treatment Scheduled Procedures Name Priority Associated Diagnoses Date/Ti me COLONOSCOPY SCREENING, LOW R ISK WITH POSSIBLE MODERATE SEDATION Screen for colon cancer Health Maintenance Due Date Last Done Comments Colonoscopy 1975 Sigmoidoscopy 1975 COVID-19 Vaccine ( - 2023-2 5 season) 2023 Alcohol/Substance Use Screening 02/25/2024 Influenza Vaccine (#1) 2024 FOBT / Fit Test 06/08/2025 06/08/2024 Cologuard 12/18/2025 12/18/2022, 12/18/2022 Colon Cancer Screening 12/18/2025 DTaP,Tdap,and Td Vaccines (2 - Td or Tdap) 05/23/2031 05/22/2021 RSV Vaccine (60+ years old a nd patients) (1 - 1-dose 75+ series) 2050 Pneumococcal Vaccine: Pediatric (0-5 Years) and At-Risk Patients (6-50 Years) Aged Out 09/06/2021 No longer eligible based on patient's age to complete this topic Hepatitis B Vaccines Completed 10/29/2022, 08/28/2022, 09/06/2021 HIV Screening Completed 06/08/2024, 06/08/2024, 05/15/2021 Insurance [place] HSNO/FREE CARE Care Teams Highway Maintenance Technician Relationship Specialty Start Date End Date Debbi Tinsley [address] [place] [phone] PCP - General 06/14/24
--- OUTSIDE RECORDS SUMMARY | 2024-10-20 16:23 | XMS_ITS | Clinical Summary ---
Author Organization [employer] Address [address] [facility] 7[address] [place] [address] Care Team Providers Care Label Operator Name Role Phone Debbi Tinsley MD Primary Care Pro vider Allergies No known active allergies Medications glucose blood (FREESTYLE LITE) test strip 1 each by Other route 3 times daily. TEST BLOOD SUGAR TWICE A DAY 100 each 10/31/19 23 Active TRUEplus Lancets 33G misc USE 1 TO TEST BLOOD SUGAR TWICE DAILY 100 each 10/31/19 23 Active atorvastatin (Lipitor) 40 MG tabletIndications :Mixed hyperlipidemia Take 1 tablet (40 mg) by mouth at bedtime. 90 tablet 05/28/19 25 Active lisinopril 2.5 MG tabletIndications :Type 2 diabetes mellitus with hyperglycemia, without long-term current use of insulin (CMS/HCC) Take 1 tablet (2.5 mg) by mouth Once per day. 90 tablet 05/28/19 25 Active metFORMIN (Glucophage) 1000 MG tabletIndications :Type 2 diabetes mellitus with hyperglycemia, without long-term current use of insulin (CMS/HCC) Take 1 tablet (1,000 mg) by mouth with breakfast AND 0.5 tablets (500 mg) with evening meal. 180 tablet 2 05/28/19 25 Active omeprazole OTC (PriLOSEC OTC) 20 MG EC tablet Take 1 tablet (20 mg) by mouth before breakfast. Do not crush, chew, or split. 90 tablet 05/28/19 25 Active Dulaglutide (Trulicity) 1.5 MG/0.5ML solution auto-injector Inject 1.5 mg under the skin 1 (one) time per week. 0.5 mL 07/23/19 Active triamcinolone (Kenalog) 0.1 % cream Apply topically if needed in the morning and at bedtime (pain and swelling). 30 g 07/23/19 Active Alcohol Swabs (Alcohol Pads) 70 % padsIndications:T ype 2 diabetes mellitus with hyperglycemia, without long-term current use of insulin ([facility]) Use as directed on skin,check glucose daily 100 each 07/23/19 Active Blood Glucose Monitoring Suppl (FreeStyle [place] Lite) w/Device kitIndications:Ty pe 2 diabetes mellitus with hyperglycemia, without long-term current use of insulin ([facility]) check glucose daily 1 kit 07/23/19 Active FreeStyle lancetsIndication s:Type 2 diabetes mellitus with hyperglycemia, without long-term current use of insulin ([facility]) 1 each by Other route Once per day. check glucose daily 60 each 07/23/19 Active glucose blood (FREESTYLE LITE) test stripIndications: Type 2 diabetes mellitus with hyperglycemia, without long-term current use of insulin ([facility]) check glucose daily 60 each 07/23/19 25 Active FT Acid Gallery Host 10 MG tablet TAKE 1 TABLET BY MOUTH TWICE DAILY IN THE MORNING AND AT BEDTIME NEEDED FOR HEARTBURN 60 tablet 09/30/19 25 Active FT Acid Gallery Host 10 MG tablet TAKE 1 TABLET BY MOUTH TWICE DAILY IN THE MORNING AND AT BEDTIME NEEDED FOR HEARTBURN 30 tablet 1 09/07/19 25 025 Discontinued Active Problems Problem Noted Date Diagnosed Date Skin lesion 07/22/2024 GERD (gastroesophageal reflux disease) Health care maintenance [...] 10mg to 40mg on 05/07/22 Foot Exam: 8/10 on L foot, 9/10 R foot. PCV 20: 09/06/21 Tdap: 05/22/21 [...] Encounters Date Type Department Care Team Description 09/29/2024 Refill [facility] [address] [place] [address] Debbi Tinsley MD 09/05/2024 Refill [facility] [address] [place] [address] Kaia Keating MD 07/22/2024 1:30 PM EDT Office Visit [facility] [address] [place] [address] Debbi Tinsley MD Type 2 diabetes mellitus with hyperglycemia, without long-term current use of insulin ([facility]) (Primary Dx); Mixed hyperlipidemia; Health care maintenance; Former smoker; Skin lesion 07/22/2024 Travel from Last 3 Months Immunizations Immunization Administration Dates Next Due Hep B, adult 10/29/2022,08/28/2022,09/06/2021 Pneumococcal Conjugate PCV 20 09/06/2021 Tdap 05/22/2021 Social History Tobacco Use Types Packs/Day Years Used Date Smoking Tobacco: Former Cigarettes 0.5 15 2 000 - 2014 Smokeless Tobacco: Never Tobacco Cessation:Counseling Given: Not Answered Comments:Started smoking 15 y of age stopped [...] Sign Reading Time Taken Comments Blood Pressure 108/70 07/22/2024 2:00 PM EDT Pulse 70 07/22/2024 2:00 PM EDT Temperature 36.3 C (97.3 F) 07/22/2024 2:00 PM EDT Respiratory Rate 20 07/22/2024 2:00 PM EDT Oxygen Saturation 97% 07/22/2024 2:00 PM EDT Inhaled Oxygen Concentration - - Weight 97 kg (213 lb 12.8 oz) 07/22/2024 2:00 PM EDT Height 167.6 cm (5' 6 ) 07/22/2024 2:00 PM EDT Body Mass Index 34.51 07/22/2024 2:00 PM EDT Plan of Treatment Upcoming Encounters Date Type Department Care Team (Late st Contact Info) Description 10/22/2024 1:30 PM EDT Office Visit [facility] [address] [place] [address] Debbi Tinsley MD [address] [place] [address] 11/25/2024 3:00 PM EDT Office Visit [facility] [address] [place] [address] Linh Jean, OD [address] [place] [address] Health Maintenance Due Date Last Done Comments CT Colonography 1975 Colonoscopy 1975 FIT 1975 FOBT 1975 Sigmoidoscopy 1975 Eye Exam 1985 Family Planning (PISQ) 1990 Diabetes: Foot Exam 06/27/2023 06/26/2022, COVID-19 Vaccine ( season) 2023 Diabetes: Hemoglobin A1C 09/07/2024 025, 10/29/2022, 06/26/2022, Additional history exists Influenza Vaccine (#1) 2024 Zoster Vaccines (1 of 2) 2025 SDOH Screening 05/18/2025 05/18/2024 Alcohol/Substance Use Screening 05/27/2025 05/27/2024 Depression Screening 05/27/2025 05/27/2024, 05/28/19 Disability Screening 05/27/2025 05/27/2024 Diabetes: Urine Protein Screening 06/08/2025 06/08/2024, 04/26/2022, 10/03/2021 Lipid Panel 06/08/2025 06/08/2024, 03/0 04/2022, 05/15/2021 Tobacco Screening 07/22/2025 07/22/2024 Colorectal Cancer Screening 12/18/2025 FIT DNA/Cologuard 12/18/2025 12/18/2022 DTaP/Tdap/Td Vaccines (2 - Td or Tdap) 05/23/2031 05/22/2021 RSV Patients and Patients Aged 60 years or older (1 - 1-dose 75+ series) 2050 Pneumococcal Vaccine: Pediatrics (0 to 5 Years) and At-Risk Patients (6 to 49) Years Completed 09/06/2021 Hepatitis B Vaccines Completed 10/29/2022, 08/28/2022, 09/06/2021 HIV Screening Completed 06/08/2024, 05/15/2021 Hepatitis C Screening Completed 06/08/2024, 022 HIB Vaccines Aged Out No longer eligi [...] patient's age to complete this topic Meningococcal B Vaccine Aged Out No l onger eligible based on patient's age to complete [...] Procedure Name Priority Date/Time Associated Diagnosis Comments HEPATITIS C AB W/REFL TO HCV RNA, QN, PCR Routine 06/08/2024 3:23 PM EDT Annual physical exam HIV 1/2 ANTIGEN/ANTIBODY, FOURTH GENERATION W/RFL Routine 06/08/2024 3:23 PM EDT Annual physical exam ALBUMIN, RANDOM URINE W/CREATININE Routine 06/08/2024 3:23 PM EDT Annual physical exam HEMOGLOBIN A1C Routine 06/08/2024 3:23 PM EDT Annual physical exam LIPID PANEL, STANDARD Routine 06/08/2024 3:23 PM EDT Annual physical exam LAB COLOGUARD COLON CANCER SCREEN Routine 12/18/2022 8:20 AM EDT Encounter for screening for malignant neoplasm of colon from Last 3 Months or Most Recently Relevant to Health Maintenance Results * Albumin, Random Urine W/Creatinine (06/08/2024 3:23 PM EDT) Creatinine, Urine 184.29 mg/dL [facility] Microalbumin Urine 25.0 mg/L [facility] Microalbum Creatinine Ratio Ur 13.5 <30 ug/mg cr [facility] Comment:Albumin/Creatinine R atio Reference Ranges: Normal: < 30 ug/mg creatinine Microalbuminuria: 30 - 300 ug/mg creatinineClinical Albuminuria: > 300 ug/mg creatinine Urine (Urine, Random) 06/08/2024 3:23 PM EDT 06/08/2024 4:02 PM EDT us Debbi Campbell MD LAB URINE ORDERAB LES Final Result Performing Organization Address [facility] Co de Phone Number [facility] [address] [place] [phone] * Hepatitis C Antibody with Reflex to HCV, RNA, Quantitative, Real-Time PCR (06/08/2024 3:23 PM EDT) Pathologist [facility] Hepatitis C Antibody Nonreactive Nonreactive [facility] Comment:Antibodies to HCV no t detected; does not exclude early acuteHCV infection. Blood Venous blood specimen / Unknown 06/08/2024 3:23 PM EDT 06/08/2024 4:04 PM EDT us Debbi Campbell MD LAB BLOOD ORDERAB LES Final Result Performing Organization Address City/[facility]/ZIP Co de Phone Number [facility] [address] [place] [address] [phone] * HIV-1/2 Antigen and Antibodies, Fourth Generation, with Reflexes (06/08/2024 3:23 PM EDT) HIV AB/AG Nonreactive Nonreactive [facility] Comment:HIV-1 p24 Ag and/or HIV-1/HIV-2 Ab not detected.A test result that is nonreactive does not exclude thepossibility of exposure to or infection with HIV-1 and/orHIV-2. Nonreactive results in this assay for individualswith prior exposure to HIV-1 and/or HIV-2 may be due toantigen and antibody levels that are below the limit ofdetection of this assay.The G2Link HIV Ag/Ab Combo assay result andsupplemental assay results should be interpreted inconjunction with the patient's clinical presentation,history and other laboratory results. If the results areinconsistent with clinical evidence, additional testing issuggested to confirm the result. Blood Venous blood specimen / Unknown 06/08/2024 3:23 PM EDT 06/08/2024 4:04 PM EDT us Debbi Campbell MD LAB BLOOD ORDERAB LES Final Result [facility] [address] [place] [address] [phone] * (ABNORMAL) Hemoglobin A1c (06/08/2024 3:23 PM EDT) Hemoglobin A1c 8.7(H) <6.0 % [facility] Comment:Hemoglobin A1C Refer ence Range Adults: 4.8 - 6.0 % Non diabetic: < 6.0 % Goal: < 7.0 %Additional Action Suggested: > 8.0 %Note: Hemoglobin A1c results are invalid for patients with abnormal amounts of HbF. Blood transfusions may impact the HbA1c concentration in the patient sample. Estimated Average Glucose 203 mg/dL [facility] Comment:eAG = Estimated ave rage glucose which is %A1C expressed asaverage glucose, using the formula of the D5C-ZiwsqyrLarlwat Glucose study (ADAG), Diabetes Care, Vol.31,#8,Sep. 2007 Blood Venous blood specimen / Unknown 06/08/2024 3:23 PM EDT 06/08/2024 4:04 PM EDT Debbi Campbell MD LAB BLOOD ORDERAB LES Final Result Performing Organization Address City/[facility]/ZIP Co de Phone Number [facility] [address] [place] [address] [phone] * (ABNORMAL) Lipid Panel, Standard (06/08/2024 3:23 PM EDT) Triglycerides 429(H) <150 mg/dL [facility] Comment:Desirable Triglyceri de: less than 150 mg/dLBorderline High Triglyceride 150-199 mg/dLHigh Triglyceride: 200-499 mg/dLVery High Triglyceride: greater than or equal to 5OO mg/dL Cholesterol 246(H) <200 mg/dL [facility] Comment:Desirable Cholestero l: less than 200 mg/dLBorderline High Cholesterol: 200-239 mg/dLHigh Cholesterol: greater than 239 mg/dL LDL Cholesterol Calculated TNP <100 mg/dL [facility] Comment:Unable to calculate the LDL. The formula of Friedwald,Lakhani, and Myron is only valid if the triglycerides areless than 400 mg/dl. HDL Cholesterol 35(L) >40 mg/dL [facility] Comment:Desirable HDL: great er than 40 mg/dL Note: This HDL assay may give artificially low results in patients with liver disease. Blood Venous blood specimen / Unknown 06/08/2024 3:23 PM EDT 06/08/2024 4:04 PM EDT us Debbi Campbell MD LAB BLOOD ORDERAB LES Final Result Performing Organization Address City/[facility]/ZIP Co de Phone Number [facility] [address] [place] [address] [phone] * Cologuard?? colon cancer screening (12/18/2022 8:20 AM EDT) Cologuard Result Negative Negative 12/27/19 4:32 AM EDT [employer] (IA #:[id number]) Comment: NEGATIVE TEST RESULT. A negative Cologuard result indicates a low likelihood that a colorectal cancer (CRC) or advanced adenoma (adenomatous polyps with more advanced pre-malignant features) is present. The chance that a person with a negative Cologuard test has a colorectal cancer is less than 1 in 1500 (negative predictive value >99.9%) or has an advanced adenoma is less than 5.3% (negative predictive value 94.7%). These data are based on a prospective cross-sectional study of 10,000 individuals at average risk for colorectal cancer who were screened with both Cologuard and colonoscopy. (Mahogany Tobias al, N Engl J Med 2014;370(14):3859-3827) The normal value (reference range) for this assay is negative. COLOGUARD RE-SCREENING RECOMMENDATION: Periodic colorectal cancer screening is an important part of preventive healthcare for asymptomatic individuals at average risk for colorectal cancer. Following a negative Cologuard result, the [place] [employer] Society and U.S. Multi-Society Task Force screening guidelines recommend a Cologuard re-screening interval of 3 years. References: [place] [employer] Guideline for Colorectal Cancer Screening: https://www.cancer.org/cancer/uivsf-kxaewz-kwhlvd/gfxhbjrqi-zmqxyscek-sshkdms/ac s-rec ommendations.html.; Kishor DK, Basilia FOSS, Jacqui GuyK, Colorectal Cancer Screening: Recommendations for Physicians and Patients from the U.S. Multi-Society Task Force on Colorectal Cancer Screening , Am J Gastroenterology 2017; 112:4305-3564. TEST DESCRIPTION: Composite algorithmic analysis of stool DNA-biomarkers with hemoglobin immunoassay. Quantitative values of individual biomarkers are not [...] screened with both Cologuard and colonoscopy. (Mahogany Raygoza et al, N Engl J Med 2014;370(14):0661-3414.) Cologuard may produce a false negative or false positive result (no colorectal cancer or precancerous polyp present at colonoscopy follow up). A negative Cologuard test result does not guarantee the absence of CRC or advanced adenoma (pre-cancer). The current Cologuard screening interval is every 3 years. ([place] [employer] and U.S. Multi-Society Task Force). Cologuard performance data in a 10,000 patient pivotal study using colonoscopy as the reference method can be accessed at the following location: www.[employer]results. Additional description of the Cologuard test process, warnings and precautions can be found at www.[employer].com. Stool specimen (specimen) 12/18/2022 8:20 AM EDT 12/19/2022 6:29 PM EDT Meghan Jeffery [employer] [facility] MOLECULAR DIAGNOSTICS ORDERABLES Final Result [employer] (CLIA #:[id number]) [address] [place] [address], from Last 3 Months or Most Recently Relevant to Health Maintenance Care Teams Label Operator Relationship Specialty Start Date End Date Debbi Tinsley MD [address] [place] [phone] PCP - General Internal Medicine 08/28/22
[2024-10-20 16:54] LABS: Alanine Aminotransferase 30 U/L (0-40); Albumin Level 4.5 g/dL (3.5-5.0); Alkaline Phosphatase 77 U/L (39-117); Anion Gap 13 (12-20); Aspartate Amino Transferase 27 U/L (5-37); Blood Urea Nitrogen 12 mg/dL (9-16); Calcium 9.4 mg/dL (8.4-10.2); Carbon Dioxide 25 mmol/L (22-29); Chloride 103 mmol/L (96-108); Cholesterol 196 mg/dL (<200); Estimated Glomerular Filt Rate > 60; HDL Cholesterol 37 mg/dL (>40); Iron 76 mcg/dL (45-160); Percent Iron Saturation 24 % (15-50); Potassium 4.2 mmol/L (3.3-5.1); Sodium 137 mmol/L (135-145); Total Iron Binding Capacity 321 mcg/dL (228-428); Total Protein 7.5 g/dL (6.5-8.0); Triglycerides 152 mg/dL (<150); Unsaturated Iron Binding 245 ug/dL
[2024-10-20 17:13] LABS: Ferritin 116 ng/mL (20-250)
[2024-10-20 17:21] LABS: Folate 10.8 ng/mL (> or = 4.0); Vitamin B12 490 pg/mL (200-900)
[2024-10-20 18:23] LABS: Hemoglobin A1C 341.0077 umol/L; Total Hemoglobin (HGBA1C) 5849.1001 umol/L
== END 2024-10-20 15:06 | disposition home or self-care (01) ==
LOC: HO.HHCL 15:05
PROVIDERS: PCP Student in an Organized Health Care Education/Training Program; Visit Provider Student in an Organized Health Care Education/Training Program
DX: E11.65 Type 2 diabetes mellitus with hyperglycemia (principal); D64.9 Anemia, unspecified
CPT/HCPCS: 36415; 80053; 80061; 82607; 82728; 82746; 83036; 83540

== ENCOUNTER 2025-01-24 09:58 | Outpatient (REF) | payer MEDICAID, OTHER, SELFPAY ==
[2025-01-24 11:12] LABS: MANUAL DIFF FLAG NO
[2025-01-24 11:29] LABS: Hematocrit 45.6 % (42.0-52.0); Hemoglobin 15.4 g/dl (14.0-18.0); Imm Gran Abs Auto 0.04 X10*3/uL (0.00-0.03); Imm Gran Pct Auto 0.6 % (0.0-0.4); Lymphocytes Absolute Auto 1.6 X10*3/uL (1.2-4.9); Mean Corpuscular HGB Conc 33.8 g/dl (31.0-36.0); Mean Corpuscular Hemoglobin 29.5 pg (27.0-33.0); Mean Corpuscular Volume 87.4 fL (80.0-98.0); NRBC Abs Auto 0.000 X10*3/uL (0.0-0.012); NRBC Pct Auto 0.0 /100WBC (0.0-0.2); Platelet Count 326 X10*3/uL (160-400); Red Blood Count 5.22 X10*6/uL (4.60-5.80); White Blood Count 6.9 X10*3/uL (4.8-10.8)
[2025-01-24 11:34] LABS: Hemoglobin A1C 152.2847 umol/L
[2025-01-24 12:03] LABS: Alanine Aminotransferase 24 U/L (0-40); Albumin Level 4.4 g/dL (3.5-5.0); Alkaline Phosphatase 73 U/L (39-117); Anion Gap 11 (12-20); Aspartate Amino Transferase 23 U/L (5-37); Blood Urea Nitrogen 9 mg/dL (9-16); Calcium 9.0 mg/dL (8.4-10.2); Carbon Dioxide 28 mmol/L (22-29); Chloride 105 mmol/L (96-108); Cholesterol 206 mg/dL (<200); Estimated Glomerular Filt Rate > 60; HDL Cholesterol 41 mg/dL (>40); Potassium 4.0 mmol/L (3.3-5.1); Sodium 140 mmol/L (135-145); Total Protein 7.3 g/dL (6.5-8.0); Triglycerides 180 mg/dL (<150)
--- OUTSIDE RECORDS SUMMARY | 2025-01-24 12:08 | XMS_ITS | Encounter Summary ---
Author Organization [employer] Address [address] [place] [address] Care Team Providers Care Cotton Picker Name Role Phone Debbi Tinsley MD Primary Care Pro vider Reason for Visit * Reason Onset Date Comments chart prep 01/24/2025 Encounter Details Date Type Department Care Team (Late st Contact Info) Description 01/24/2025 Telephone [facility] MEDICINE [address] [place] [address] Debbi Tinsley MD [address] [place] [address] chart prep Social History Tobacco Use Types Packs/Day Years Used Date Smoking Tobacco: Former Cigarettes 0.5 2 - 2014 Smokeless Tobacco: Never Comments:Started smoking [...] not to disclose 2021 10:40 AM EDT documented as of this encounter Miscellaneous Notes * Telephone Encounter - Mila Almazan MA - 01/24/2025 10:01 AM EST Chart Prep Labs: not done Images: not applicable Screenings: Not Applicable Vaccines due: Covid Due, Flu Due, and Shingles in pharmacy Due Referrals: Completed Overdue care gaps: A1C, Glucose, and GAD7 documented in this encounter Plan of Treatment Upcoming Encounters Date Type Department Care Team (Late st Contact Info) Description 01/25/2025 11:15 AM EST Office Visit [facility] MEDICINE [address] [place] [phone] Debbi Tinsley MD [address] [place] [address] 02/08/2025 3:30 PM EST Clinical Support [facility] DIABETES/NUTRITION [address] [place] [phone] Soco Gordon, RD [address] [place] [address] documented as of this encounter Goals Goal Patient Goal Type Associated Problems Recent Progress Patient-Stated? Author Help patients manage their type 2 diabetes Care Plan Help patients manage their type 2 diabetes No Adriana Villanueva Weekly blood pressure task Care Plan Weekly blood pressure task No Adriana Villanueva Help patients manage their type 2 diabetes Care Plan Help patients manage their type 2 diabetes No Adriana Villanueva Patient has chronic kidney disease Care Plan Patient has chronic kidney disease No Adriana Villanueva Weekly blood pressure task Care Plan Weekly blood pressure task No Adriana Villanueva Patient has chronic kidney disease Care Plan Patient has chronic kidney disease No Adriana Villanueva Weekly blood pressure task Care Plan Weekly blood pressure task No Mila Almazan MA Weekly blood pressure task Care Plan Weekly blood pressure task No Mila Almazan [place] Patient has chronic kidney disease Care Plan Patient has chronic kidney disease No Mila Almazan [place] Patient has chronic kidney disease Care Plan Patient has chronic kidney disease No Mila Almazan MA Weekly blood pressure task Care Plan Weekly blood pressure task No Mila Almazan MA Weekly blood pressure task Care Plan Weekly blood pressure task No Mila Almazan MA Patient has chronic kidney disease Care Plan Patient has chronic kidney disease No Mila Almazan MA Patient has chronic kidney disease Care Plan Patient has chronic kidney disease No Mila Almazan MA documented as of this encounter Visit Diagnoses Not on filedocumented in this encounter Additional Health Concerns Active Problems Noted Date Diagnosed Date Help patients manage their type 2 diabetes 01/12 Weekly blood pressure task 01/12/2025 Help patients manage their type 2 diabetes 01/12 Patient has chronic kidney disease 01/12/2025 Weekly blood pressure task 01/12/2025 Patient has chronic kidney disease 01/12/2025 Weekly blood pressure task 01/24/2025 Weekly blood pressure task 01/24/2025 Patient has chronic kidney disease 01/24/2025 Patient has chronic kidney disease 01/24/2025 Weekly blood pressure task 01/24/2025 Weekly blood pressure task 01/24/2025 Patient has chronic kidney disease 01/24/2025 Patient has chronic kidney disease 01/24/2025 Assessment Noted Time PHQ-9 Depression Total Score: 0 05/28/19 25 1:49 PM EDT documented as of this encounter Care Teams Cotton Picker Relationship Specialty Start Date End Date Debbi Tinsley MD [address] [place] [phone] PCP - General Internal Medicine 08/28/22 documented as of this encounter
--- OUTSIDE RECORDS SUMMARY | 2025-01-24 12:08 | XMS_ITS | Clinical Summary ---
Author Organization [employer] Address [address] [facility] 7[address] [place] [address] Care Team Providers Care Bundling Machine Operator Name Role Phone Debbi Tinsley MD Primary Care Pro vider Allergies No known active allergies Medications glucose blood (FREESTYLE LITE) test strip 1 each by Other route 3 times daily. TEST BLOOD SUGAR TWICE A DAY 100 each 3 Active TRUEplus Lancets 33G misc USE 1 TO TEST BLOOD SUGAR TWICE DAILY 100 each 3 Active omeprazole OTC (PriLOSEC OTC) 20 MG EC tablet Take 1 tablet (20 mg) by mouth before breakfast. Do not crush, chew, or split. 90 tablet 5 Active Alcohol Swabs (Alcohol Pads) 70 % padsIndications:Ty pe 2 diabetes mellitus with hyperglycemia, without long-term current use of insulin ([facility]) Use as directed on skin,check glucose daily 100 each 5 Active Blood Glucose Monitoring Suppl (FreeStyle Holden Lite) w/Device kitIndications:Typ e 2 diabetes mellitus with hyperglycemia, without long-term current use of insulin ([facility]) check glucose daily 1 kit 5 Active FreeStyle lancetsIndications :Type 2 diabetes mellitus with hyperglycemia, without long-term current use of insulin ([facility]) 1 each by Other route Once per day. check glucose daily 60 each 5 Active glucose blood (FREESTYLE LITE) test stripIndications:T ype 2 diabetes mellitus with hyperglycemia, without long-term current use of insulin ([facility]) check glucose daily 60 each 5 Active FT Acid Manager Application 10 MG tablet TAKE 1 TABLET BY MOUTH TWICE DAILY IN THE MORNING AND AT BEDTIME NEEDED FOR HEARTBURN 60 tablet 5 Active metFORMIN (Glucophage) 1000 MG tabletIndications: Type 2 diabetes mellitus with hyperglycemia, without long-term current use of insulin (HCC) Take 1 tablet (1,000 mg) by mouth with breakfast and with evening meal. 180 tablet 5 10/23/19 26 Active Dulaglutide (Trulicity) 3 MG/0.5ML solution auto-injector Inject 3 mg under the skin 1 (one) time per week. 0.5 mL 2 5 Active lisinopril 2.5 MG tabletIndications: Type 2 diabetes mellitus with hyperglycemia, without long-term current use of insulin (HCC) Take 1 tablet (2.5 mg) by mouth Once per day. 90 tablet 5 Active atorvastatin (Lipitor) 40 MG tabletIndications: Mixed hyperlipidemia Take 1 tablet (40 mg) by mouth at bedtime. 90 tablet 5 Active Active Problems Problem Noted Date Diagnosed Date Skin lesion 07/22/2024 GERD (gastroesophageal reflux disease) 5 Health care maintenance 08/28/2022 Overview (11/26/2022): Immunizations: [...] 05/07/22 Foot Exam: 810 on L foot, 9/10 R foot. PCV [...] 10 years ago Cocaine dependence in remission ([facility]) 2022 Overview (04/03/2022): Quit 10 years ago Used nasally Hyperlipidemia 05/16/2021 Overview (08/28/2022): Continue statin Follow low fat diet Educated Pt on importance of following diabetic diet Assessment & Plan (08/28/2022 5:54 PM EDT): Followup 1-2 months with new PCP Encounters Date Type Department Care Team Description 01/24/2025 Telephone [facility] MEDICINE [address] [place] [phone] Debbi Tinsley MD chart prep 01/12/2025 Patient Outreach [address] [address] Debbi Tinsley MD Pre-visit Planning (SDOH screening was completed on 05/18/2024) 12/24/2024 Travel 11/30/2024 1:00 PM EDT Clinical Support [facility] DIABETES/NUTRITION [address] [place] [address] Type 2 diabetes mellitus with hyperglycemia, without long-term current use of insulin (HCC) (Primary Dx); Obesity without serious comorbidity, unspecified class, unspecified obesity type 11/30/2024 Travel 11/25/2024 3:00 PM EDT Office Visit [facility] OPTOMETRY [address] [place] [address] Linh Jean, OD Type 2 diabetes mellitus without ophthalmic manifestations (HCC) (Primary Dx); Bilateral dry eyes; Astigmatism of both eyes with presbyopia 11/25/2024 Travel 11/02/2024 Telephone [facility] [address] [place] [address] Nutrition appt 11/01/[address] [phone] Debbi Tinsley MD Appointment Request 10/27/[address] [phone] Debbi Tinsley MD Prior Authorization from Last 3 Months Immunizations Immunization Administration [...] Sign Reading Time Taken Comments Blood Pressure 130/88 10/22/2024 1:51 PM EDT Pulse 72 10/22/2024 1:51 PM EDT Temperature 36.3 C (97.3 F) 10/22/2024 1:51 PM EDT Respiratory Rate 20 10/22/2024 1:51 PM EDT Oxygen Saturation 96% 10/22/2024 1:51 PM EDT Inhaled Oxygen Concentration - - Weight 95.3 kg (210 lb 3.2 oz) 12/02/2024 11:40 AM EDT Height 167.6 cm (5' 6 ) 12/02/2024 11:40 AM EDT Body Mass Index 33.93 12/02/2024 11:40 AM EDT Plan of Treatment Upcoming Encounters Date Type Department Care Team (Late st Contact Info) Description 01/25/2025 11:15 AM EST Office Visit [facility] MEDICINE [address] [place] [phone] Debbi Tinsley MD [address] [place] [address] 02/08/2025 3:30 PM EST Clinical Support [facility] DIABETES/NUTRITION [address] [place], [place] [phone] [address]o [address] [place] [address] Health Maintenance Due Date Last Done Comments CT Colonography 1975 Colonoscopy 1975 FIT 1975 Sigmoidoscopy 1975 Family Planning (PISQ) 1990 Diabetes: Foot Exam 06/27/2023 06/26/2022, FOBT 12/19/2023 12/18/2022 COVID-19 Vaccine ( season) 2024 Influenza Vaccine (#1) 2024 Zoster Vaccines (1 of 2) 2025 Diabetes: Hemoglobin A1C 04/24/2025 025, 10/20/2024, 06/08/2024, Additional history exists SDOH Screening 05/18/2025 05/18/2024 Alcohol/Substance Use Screening 05/27/2025 05/27/2024 Depression Screening 05/27/2025 05/27/2024, 05/28/19 Disability Screening 05/27/2025 05/27/2024 Diabetes: Urine Protein Screening 06/08/2025 06/08/2024, 04/26/2022, 10/03/2021 Lipid Panel 10/20/2025 01/24/2025, 09/25, 06/08/2024, Additional history exists Tobacco Screening 11/25/2025 11/25/2024 Colorectal Cancer Screening 12/18/2025 FIT DNA/Cologuard 12/18/2025 12/18/2022 Eye Exam 11/25/2026 11/25/2024, 03/2024, 11/25/2024, Additional history exists DTaP/Tdap/Td Vaccines (2 - Td or Tdap) [...] on patient's age to complete this topic Goals Goal Patient Goal Type Associated Problems [...] chronic kidney disease No Mila Almazan MA Procedures Procedure Name Priority Date/Time Associated Diagnosis Comments CBC WITH AUTO DIFFERENTIAL Routine 01/24/2025 10:06 AM EST Iron deficiency anemia, unspecified iron deficiency anemia type LIPID PANEL, STANDARD Routine 01/24/2025 10:06 AM EST Type 2 diabetes mellitus with hyperglycemia, without long-term current use of insulin (HCC) HEMOGLOBIN A1C Routine 01/24/2025 10:06 AM EST Type 2 diabetes mellitus with hyperglycemia, without long-term current use of insulin (HCC) COMPREHENSIVE METABOLIC PANEL Routine 01/24/2025 10:06 AM EST Type 2 diabetes mellitus with hyperglycemia, without long-term current use of insulin (HCC) HEPATITIS C AB W/REFL TO HCV RNA, [...] Recently Relevant to Health Maintenance Results * (ABNORMAL) CBC auto differential (01/24/2025 10:06 AM EST) White Blood Count 6.9 4.8 - 10.8 X10*3/uL [facility] Red Blood Count 5.22 4.60 - 5.80 X10*6/uL [facility] Hemoglobin 15.4 14.0 - 18.0 g/dl [facility] Hematocrit 45.6 42.0 - 52.0 % [facility] Mean Corpuscular Volume 87.4 80.0 - 98.0 fL [facility] Mean Corpuscular Hemoglobin 29.5 27.0 - 33.0 pg [facility] Mean Corpuscular HGB Conc 33.8 31.0 - 36.0 g/dl [facility] Red Cell Distribution Width 13.4 11.0 - 16.0 % [facility] Platelet Count 326 160 - 400 X10*3/uL [facility] Mean Platelet Volume 9.5 9.4 - 12.4 fL [facility] Neutrophils Percent Auto 66.4 45 - 73 % [facility] Imm Gran Pct Auto 0.6(H) 0.0 - 0.4 % [facility] Lymphocytes Percent Auto 22.6 20 - 40 % [facility] Monocytes Percent Auto 7.1 2 - 11 % [facility] Eosinophils Percent Auto 2.9 0 - 4 % [facility] Basophils Percent Auto 0.4 0 - 2 % [facility] NRBC Pct Auto 0.0 0.0 - 0.2 /100WBC [facility] Neutrophils Absolute Auto 4.6 2.0 - 8.3 x10*3/uL [facility] Imm Gran Abs Auto 0.04(H) 0.00 - 0.03 X10*3/uL [facility] Lymphocytes Absolute Auto 1.6 1.2 - 4.9 X10*3/uL [facility] Monocytes Absolute Auto 0.5 0.1 - 1.2 X10*3/uL [facility] Eosinophils Absolute Auto 0.2 0.0 - 0.4 X10*3/uL [facility] Basophils Absolute Auto 0.0 0.0 - 0.2 X10*3/uL [facility] NRBC Abs Auto 0.000 0.0 - 0.012 X10*3/uL [facility] Blood Venous blood specimen / Unknown 01/24/2025 10:06 AM EST 01/24/2025 11:10 AM EST us Debbi Campbell MD LAB BLOOD ORDERAB LES Final Result [facility] [address] [place] [phone] * (ABNORMAL) Hemoglobin A1c (01/24/2025 10:06 AM EST) Hemoglobin A1c 7.4(H) <6.0 % [facility] Comment:Hemoglobin A1C Refer ence Range Adults: 4.8 - 6.0 % Non diabetic: < 6.0 % Goal: < 7.0 %Additional Action Suggested: > 8.0 %Note: Hemoglobin A1c results are invalid for patients with abnormal amounts of HbF. Blood transfusions may impact the HbA1c concentration in the patient sample. Estimated Average Glucose 166 mg/dL [facility] Comment:eAG = Estimated ave rage glucose which is %A1C expressed asaverage glucose, using the formula of the S0S-GsctrxpUfxphya Glucose study (ADAG), Diabetes Care, Vol.31,#8,Sep. 2007 Blood Venous blood specimen / Unknown 01/24/2025 10:06 AM EST 01/24/2025 11:10 AM EST us Debbi Campbell MD LAB BLOOD ORDERAB LES Final Result Performing Organization Address [facility] Co de Phone Number [facility] [address] [place] [phone] * (ABNORMAL) Lipid Panel, Standard (01/24/2025 10:06 AM EST) Triglycerides 180(H) <150 mg/dL [facility] Comment:Desirable Triglyceri de: less than 150 mg/dLBorderline High Triglyceride 150-199 mg/dLHigh Triglyceride: 200-499 mg/dLVery High Triglyceride: greater than or equal to 5OO mg/dL Cholesterol 206(H) <200 mg/dL [facility] Comment:Desirable Cholestero l: less than 200 mg/dLBorderline High Cholesterol: 200-239 mg/dLHigh Cholesterol: greater than 239 mg/dL LDL Cholesterol Calculated 129(H) <100 mg/dL [facility] Comment:Desirable LDL: less than 100 mg/dLNear Optimal/Above Optimal LDL: 110- 129 mg/dLBorderline High LDL: 130-159 mg/dLHigh LDL: 160-189 mg/dLVery High LDL: greater than or equal to 190 mg/dL HDL Cholesterol 41 >40 mg/dL [facility] Comment:Desirable HDL: great er than 40 mg/dL Note: This HDL assay may give artificially low results in patients with liver disease. Blood Venous blood specimen / Unknown 01/24/2025 10:06 AM EST 01/24/2025 11:10 AM EST us Debbi Campbell MD LAB BLOOD ORDERAB LES Final Result Performing Organization Address City/[facility]/ZIP Co de Phone Number [facility] [address] [place] [phone] * (ABNORMAL) Comprehensive Metabolic Panel (01/24/2025 10:06 AM EST) Sodium 140 135 - 145 mmol/L [facility] Potassium 4.0 3.3 - 5.1 mmol/L [facility] Chloride 105 96 - 108 mmol/L [facility] Carbon Dioxide 28 22 - 29 mmol/L [facility] Anion Gap 11(L) 12 - 20 [facility] Urea Nitrogen (BUN) 9 9 - 16 mg/dL [facility] Creatinine, Serum 0.76 0.5 - 1.4 mg/dL [facility] Estimated Glomerular Filt Rate >60 [facility] Comment:Chronic Kidney Disea se: Estimated GFR < 60 mL/min/1.75u1Uqswsy Kidney Disease: Estimated GFR < 15 mL/min/1.73m2 Glucose 157(H) 60 - 115 mg/dL [facility] Calcium 9.0 8.4 - 10.2 mg/dL [facility] Bilirubin, Total 0.3 0.0 - 1.0 mg/dL [facility] Aspartate Amino Transferase 23 5 - 37 U/L [facility] Alanine Aminotransferase 24 0 - 40 U/L [facility] Total Protein 7.3 6.5 - 8.0 g/dL [facility] Albumin Level 4.4 3.5 - 5.0 g/dL [facility] Alkaline Phosphatase 73 39 - 117 U/L [facility] Blood Venous blood specimen / Unknown 01/24/2025 10:06 AM EST 01/24/2025 11:10 AM EST us Debbi Campbell MD LAB BLOOD ORDERAB LES Final Result [facility] [address] [place] [phone] * Albumin, Random Urine W/Creatinine (06/08/2024 3:23 PM EDT) Creatinine, Urine 184.29 mg/dL [facility] Microalbumin Urine 25.0 mg/L [facility] Microalbum Creatinine Ratio Ur 13.5 <30 ug/mg cr [facility] Comment:Albumin/Creatinine R at Reference Ranges: Normal: < 30 ug/mg creatinine Microalbuminuria: 30 - 300 ug/mg creatinineClinical Albuminuria: > 300 ug/mg creatinine Urine (Urine, Random) 06/08/2024 3:23 PM EDT 06/08/2024 4:02 PM EDT us Debbi Campbell MD LAB URINE ORDERAB LES Final Result Performing Organization Address [facility]/ZIP Co de Phone Number [facility] [address] [place] [phone] * Hepatitis C Antibody with Reflex to HCV, RNA, Quantitative, Real-Time PCR (06/08/2024 3:23 PM EDT) Pathologist [facility] Hepatitis C Antibody Nonreactive Nonreactive [facility] Comment:Antibodies to HCV no t detected; does not exclude early acuteHCV infection. Blood Venous blood specimen / Unknown 06/08/2024 3:23 PM EDT 06/08/2024 4:04 PM EDT us Debbi Campbell MD LAB BLOOD ORDERAB LES Final Result Performing Organization Address [facility]/ZIP Co de Phone Number [facility] [address] [place] [phone] * HIV-1/2 Antigen and Antibodies, Fourth Generation, with Reflexes (06/08/2024 3:23 PM EDT) Pathologist [facility] HIV AB/AG Nonreactive Nonreactive [facility] Comment:HIV-1 p24 Ag and/or HIV-1/HIV-2 Ab not detected.A test result that is nonreactive does not exclude thepossibility of exposure to or infection with HIV-1 and/orHIV-2. Nonreactive results in this assay for individualswith prior exposure to HIV-1 and/or HIV-2 may be due toantigen and antibody levels that are below the limit ofdetection of this assay.The [employer] HIV Ag/Ab Combo assay result andsupplemental assay results should be interpreted inconjunction with the patient's clinical presentation,history and other laboratory results. If the results areinconsistent with clinical evidence, additional testing issuggested to confirm the result. Blood Venous blood specimen / Unknown 06/08/2024 3:23 PM EDT 06/08/2024 4:04 PM EDT Debbi Campbell MD LAB BLOOD ORDERAB LES Final Result [facility] [address] [place] [phone] * Cologuard?? colon cancer screening (12/18/2022 8:20 AM EDT) Cologuard Result Negative Negative 12/27/19 4:32 AM EDT [facility] (CLIA #:[id number]) Comment: NEGATIVE TEST RESULT. A negative Cologuard [...] Raygoza et al, N Engl J Med 2014;370(14):0142-4298) The normal value (reference range) for this assay is negative. COLOGUARD RE-SCREENING RECOMMENDATION: Periodic colorectal cancer screening is an important part of preventive healthcare for asymptomatic individuals at average risk for colorectal cancer. Following a negative Cologuard result, the [place] [employer] and U.S. Multi-Society Task Force screening guidelines recommend a Cologuard re-screening interval of 3 years. References: [place] [employer] Guideline for Colorectal Cancer Screening: https://www.cancer.org/cancer/zmciz-dsufwf-mzppau/abhivecfs-iwiqylrtm-aolzsry/ac s-rec ommendations.html.; Kishor DK, Basilia FOSS, Jacqui RUBIO, Colorectal Cancer Screening: Recommendations for Physicians and Patients from the U.S. Multi-Society Task Force on Colorectal Cancer Screening , Am J Gastroenterology 2017; 112:3740-9083. TEST DESCRIPTION: Composite algorithmic analysis of stool [...] (Mahogany Tobias al, N Engl J Med 2014;370(14):9085-8188.) Cologuard may produce a false negative or false positive result (no colorectal cancer or precancerous polyp present at colonoscopy follow up). A negative Cologuard test result does not guarantee the absence of CRC or advanced adenoma (pre-cancer). The current Cologuard screening interval is every 3 years. ([place] [employer] and U.S. Multi-Society Task Force). Cologuard performance data in a 10,000 patient pivotal study using colonoscopy as the reference method can be accessed at the following location: www.[employer]/results. Additional description of the Cologuard test process, warnings and precautions can be found at www.cologuard.com. Stool specimen (specimen) 12/18/2022 8:20 AM EDT 12/19/2022 6:29 PM EDT Meghan Serrano Jose D MEDIA ANALYST LAB MOLECULAR DIAGNOSTICS ORDERABLES Final Result [facility] (CLIA #:[id number]) [address] [place] [address], from Last 3 Months or Most Recently Relevant to Health Maintenance Additional Health Concerns Active Problems Noted Date [...] 01/24/2025 Patient has chronic kidney disease 01/24/[address] [place] [address] LIMITED HS FULL Care Teams Bundling Machine Operator Relationship Specialty Start Date End Date Debbi Tinsley MD [address] [place] [phone] PCP - General Internal Medicine 08/28/22
--- OUTSIDE RECORDS SUMMARY | 2025-01-24 12:08 | XMS_ITS | Encounter Summary ---
Author Organization [employer] Address [address] [place] [phone] Care Team Providers Care Onion Farmer Name Role Phone Debbi Tinsley MD Primary Care Pro vider Reason for Visit * Reason Onset Date Comments Appointment Request 11/01/2024 Encounter Details Date Type Department Care Team (Late st Contact Info) Description 11/01/2024 Telephone [facility] MEDICINE [address] [place] [address] Debbi Tinsley MD [address] [place] [address] Appointment Request Social History Tobacco Use Types Packs/Day Years [...] encounter Miscellaneous Notes * Telephone Encounter - Vahe Joshi - 11/01/2024 1:38 PM EDT Tc from pt requesting for pt to get a call back , he is requesting to reschedule missed nutrition apt Contact pt at [phone] (chilean) documented in this encounter Plan of Treatment Upcoming Encounters Date Type Department Care Team (Late st Contact Info) Description 01/25/2025 11:15 AM EST Office Visit [facility] MEDICINE [address] [place] [address] [phone] Debbi Tinsley MD [address] [place] [phone] 02/08/2025 3:30 PM EST Clinical Support [facility] DIABETES/NUTRITION [address] [place] [phone] [place] [address] documented as of this encounter Visit Diagnoses Not on filedocumented in this encounter Additional Health Concerns Assessment Noted Time PHQ-9 Depression Total Score: 0 05/28/19 25 1:49 PM EDT documented as of this encounter Care Teams Onion Farmer Relationship Specialty Start Date End Date Debbi Tinsley MD [address] [place] [address] PCP - General Internal Medicine 08/28/22 documented as of this encounter
--- OUTSIDE RECORDS SUMMARY | 2025-01-24 12:08 | XMS_ITS | Clinical Summary ---
Author Organization [facility] Address [address] [place] [address] Care Team Providers Care Safety Coordinator Name Role Phone Debbi Tinsley Primary Care Provider [phone] Allergies No known active allergies Medications No [...] Last Done Comments Colonoscopy 1975 Sigmoidoscopy 1975 Alcohol/Substance Use Screening 02/25/2024 Influenza Vaccine (#1) 2024 COVID-19 Vaccine ( - 2024-2 6 season) 2024 FOBT / Fit Test 06/08/2025 06/08/2024 Cologuard 12/18/2025 12/18/2022, 12/18/2022 Colon Cancer Screening 12/18/2025 DTaP,Tdap,and Td Vaccines (2 - Td or Tdap) 05/23/2031 05/22/2021 Pneumococcal Vaccine: Pediatric (0-5 Years) and At-Risk Patients (6-50 Years) Aged Out 09/06/2021 No longer eligible based on patient's age to complete this topic Hepatitis B Vaccines Completed 10/29/2022, 08/28/2022, 09/06/2021 HIV Screening Completed 06/08/2024, 06/08/2024, 05/15/2021 Insurance [employer] [facility] CARE Care Teams Safety Coordinator Relationship Specialty Start Date End Date Debbi Tinsley [address] [place] [id number] PCP - General 06/14/24
[2025-01-24 12:24] LABS: Microalbum/Creatinine Ratio Ur 19.2 ug/mg cr (<30)
[2025-01-24 12:40] LABS: Folate 11.8 ng/mL (> or = 4.0); Vitamin B12 498 pg/mL (200-900)
== END 2025-01-24 09:59 | disposition home or self-care (01) ==
LOC: HO.HHCL 09:58
PROVIDERS: PCP Student in an Organized Health Care Education/Training Program; Visit Provider Student in an Organized Health Care Education/Training Program
DX: E11.65 Type 2 diabetes mellitus with hyperglycemia (principal); D50.9 Iron deficiency anemia, unspecified
CPT/HCPCS: 36415; 80053; 80061; 82043; 82570; 82607; 82746; 83036; 85025